=== PATIENT | male | born 1975 | race Caucasian/White ===

== ENCOUNTER 2019-01-17 10:09 | Emergency (ER) | payer MEDICARE, OTHER ==
[~2019-01-17] VITALS: Ht 177.8 cm; Wt 169.2 kg
[2019-01-17] MEDS ORDERED: ETOMIDATE 2 MG/ML VIAL IV ONE ×2 (10:12→14:00)
[2019-01-17] MEDS ORDERED: NALOXONE PREFILLED SYRINGE 2 MG/2 ML SYRINGE ONE (10:12)
[2019-01-17] MEDS ORDERED: SUCCINYLCHOLINE CHLORIDE 20 MG/ML VIAL IV ONE ×2 (10:12→14:00)
[2019-01-17 10:23] VITALS: BP 146/84
--- NOTE | 2019-01-17 10:23 | NUR ---
BIB [facility],ALTERED, FROM A TRANSPORT VAN ON THE WAY TO A PARTIAL PROGRAM, TO ER BED 5,MONITORED,PREPARED FOR RSI
--- NOTE | 2019-01-17 10:30 | NUR ---
BECAME APNEIC AND WENT INTO ASYSTOLE, ACLS PROTOCOL STARTED- REFER TO CODE SHEET
--- NOTE | 2019-01-17 11:07 | NUR ---
DR ARIE MCLAIN THR OFFICE,[facility],AT [phone]
--- NOTE | 2019-01-17 11:25 | NUR ---
BRADENTON LESTER WILLIAM SAID THAT LOBO FONSECA IS THE PMD,[phone]
--- NOTE | 2019-01-17 11:32 | NUR ---
CALL RECEIVED FROM [place] FROM DR ADLER'S OFFICE, SHE SAID THAT DR WATTERS WILL SIGN HIS CERTIFICATE.
--- NOTE | 2019-01-17 11:34 | NUR ---
CALL BACK FROM [place] FROM [facility],, ONLY FAMILY IS LORENE [phone]
[2019-01-17] MEDS ORDERED: NALOXONE PREFILLED SYRINGE 2 MG/2 ML SYRINGE IV ONE (12:00)
--- NOTE | 2019-01-17 12:16 | NUR ---
ATTEMPTED TO CALL DADLORENE AT [phone], MESSAGE IS FULL AND UNABLE TO TAKE MESSAGES
--- NOTE | 2019-01-17 12:47 | NUR ---
TRANSFER TO [facility]
[2019-01-17] MEDS ORDERED: IV NS 0.9% 1,000 ML BAG IV ONE (14:00)
[2019-01-17] MEDS ORDERED: CALCIUM CHLORIDE 1,000 MG/10 ML DISP.SYRIN IV ONE (14:00)
[2019-01-17] MEDS ORDERED: SODIUM BICARBONATE SYR 50 MEQ/50 ML DISP.SYRIN IV ONE (14:00)
[2019-01-17] MEDS ORDERED: ATROPINE SULFATE INJ 1 MG/ML VIAL IV ONE (14:00)
[2019-01-17] MEDS ORDERED: EPINEPHRINE (1:10,000) SYRINGE 1 MG/10 ML DISP.SYRIN IV ONE ×6 (14:00)
== END 2019-01-17 12:47 | disposition expired ==
LOC: ER 10:11
DX: I46.9 Cardiac arrest, cause unspecified (principal); I10 Essential (primary) hypertension; J44.9 Chronic obstructive pulmonary disease, unspecified; K21.9 Gastro-esophageal reflux disease without esophagitis; E11.9 Type 2 diabetes mellitus without complications; F25.9 Schizoaffective disorder, unspecified; E66.01 Morbid (severe) obesity due to excess calories; Z68.43 Body mass index [BMI] 50.0-59.9, adult; Z98.890 Other specified postprocedural states
CPT/HCPCS: 31500; 96374; 99285; J0330; J2310; J3490; J7030